=== PATIENT | male | born 1935 | race Caucasian/White ===

== ENCOUNTER 2021-04-07 17:15 | Inpatient (IN) | payer MEDICARE, OTHER ==
[2021-04-07] MEDS ORDERED: Bacitracin 1 PK ONE (17:39)
[2021-04-07 17:49] LABS: #Basophils 0.1 thou/uL (0.0-0.2); #Eosinphils 0.1 thou/uL (0.0-0.7); #Lymphocytes 1.7 thou/uL (1.20-3.40); #Monocytes 0.8 thou/uL (0.11-0.59); #Neutrophils 4.9 thou/uL (1.40-6.50); %Eosinophils 1.7 % (0.0-10.0); %Lymphocytes 22.3 % (21.0-51.0); %Monocytes 10.2 % (0.0-10.0); %Neutrophils 64.8 % (42.0-75.0); Hemoglobin 13.8 g/dL (14.0-18.0); Mean Corpuscular HGB CONC 32.8 g/dL (32.0-36.0); Mean Corpuscular Hemoglobin 33.2 pg (27.0-31.0); Mean Platelet Volume 8.6 fL (7.4-10.4); Platelet Count 135 thou/uL (130-400); RBC Distribution Width 14.3 % (11.5-14.5); Red Blood Cell (RBC) Count 4.15 mill/uL (4.70-6.10); White Blood Cell (WBC) Count 7.6 thou/uL (4.8-10.8)
[2021-04-07 18:13] LABS: ALT (SGPT) 15 U/L (8-55); AST (SGOT) 18 U/L (5-34); Alkaline Phosphatase 99 U/L (40-110); Anion Gap 12 mmol/L (10-20); BUN (Urea Nitrogen) 25 mg/dL (8.4-25.7); Bilirubin, Total 1.4 mg/dL (0.2-1.2); Calc. Creatinine Clearance 0 mL/min (70-130); Calcium 9.2 mg/dL (7.8-10.44); Carbon Dioxide 31 mmol/L (23-31); Chloride 99 mmol/L (98-107); Globulin 2.9 g/dL (2.4-3.5); Glucose 113 mg/dL (83-110); Potassium 3.4 mmol/L (3.5-5.1); Protein, Total 6.9 g/dL (5.8-8.1); Sodium 139 mmol/L (136-145)
[2021-04-07] MEDS ORDERED: Nitroglycerin 2% Ointment 1 INCH/1 GM Packet ONE (18:27)
[2021-04-07] MEDS ORDERED: Furosemide 100 MG/10 ML VIAL ONE (18:27)
[2021-04-07] MEDS ORDERED: Aspirin 325 MG TAB ONE (18:27)
[2021-04-07 18:33] LABS: CKMB 2.7 ng/mL (0-6.6)
[2021-04-07] MEDS ORDERED: Acetaminophen 650 MG Suppository PR PRN (19:22)
[2021-04-07] MEDS ORDERED: Acetaminophen 325 MG TAB PO PRN (19:22)
[2021-04-07] MEDS ORDERED: Ondansetron ODT 4 MG TAB PO PRN (19:22)
[2021-04-07] MEDS ORDERED: Ondansetron PF 4 MG/2 ML Vial IVP PRN (19:22)
[2021-04-07] MEDS ORDERED: Furosemide 40 MG/4 ML VIAL SLOW IVP SCH (19:30)
[2021-04-07 21:03] VITALS: BMI 30.9
[2021-04-08 06:06] LABS: Anion Gap 12 mmol/L (10-20); BUN (Urea Nitrogen) 23 mg/dL (8.4-25.7); Calc. Creatinine Clearance 51 mL/min (70-130); Calcium 9.2 mg/dL (7.8-10.44); Carbon Dioxide 31 mmol/L (23-31); Chloride 100 mmol/L (98-107); Glucose 103 mg/dL (83-110); Potassium 3.3 mmol/L (3.5-5.1); Sodium 140 mmol/L (136-145)
[2021-04-08] MEDS: Furosemide 40 MG/4 ML VIAL SLOW IVP SCH ×2 (06:33→15:09)
[2021-04-08] MEDS: Allopurinol 300 MG TAB PO SCH (08:09)
[2021-04-08] MEDS: Clopidogrel Bisulfate 75 MG TAB PO SCH (08:09)
[2021-04-08] MEDS: Carvedilol 6.25 MG TAB PO SCH (08:09)
[2021-04-08] MEDS: Tamsulosin HCl 0.4 MG CAP PO SCH (08:09)
[2021-04-08] MEDS ORDERED: Communication Order-Pharmacy FS SCH (09:45)
[2021-04-08 11:08] LABS: SARS-CoV-2 PCR by NAA Not Detected (NotDetected)
[2021-04-08] MEDS ORDERED: Potassium Chloride 20 MEQ TAB PO SCH (11:15)
[2021-04-08 11:35] LABS: Magnesium 1.9 mg/dL (1.6-2.6)
[2021-04-08] MEDS: Atorvastatin Calcium 20 MG TAB PO SCH (20:05)
[2021-04-08] MEDS: Aspirin 81 mg Enteric Coated Tablet PO SCH (20:05)
[2021-04-09] MEDS: Furosemide 40 MG/4 ML VIAL SLOW IVP SCH ×2 (05:57→14:36)
[2021-04-09] MEDS ORDERED: Sodium Chloride 0.9% 1,000 ML IV SCH (06:00)
[2021-04-09 06:06] LABS: Anion Gap 10 mmol/L (10-20); BUN (Urea Nitrogen) 34 mg/dL (8.4-25.7); Calc. Creatinine Clearance 43 mL/min (70-130); Calcium 9.3 mg/dL (7.8-10.44); Carbon Dioxide 34 mmol/L (23-31); Chloride 99 mmol/L (98-107); Glucose 119 mg/dL (83-110); Potassium 4.2 mmol/L (3.5-5.1); Sodium 139 mmol/L (136-145)
[2021-04-09] MEDS: Allopurinol 300 MG TAB PO SCH (09:16)
[2021-04-09] MEDS: Clopidogrel Bisulfate 75 MG TAB PO SCH (09:16)
[2021-04-09] MEDS: Tamsulosin HCl 0.4 MG CAP PO SCH (09:16)
[2021-04-09] MEDS: Carvedilol 6.25 MG TAB PO SCH (10:08)
[2021-04-09] MEDS ORDERED: Fluticasone Propionate Nasal Spray 16 gm Bottle NASAL SCH (17:15)
[2021-04-09] MEDS: Aspirin 81 mg Enteric Coated Tablet PO SCH (19:48)
[2021-04-09] MEDS: Carvedilol 3.125 MG TAB PO SCH (19:48)
[2021-04-09] MEDS: Atorvastatin Calcium 20 MG TAB PO SCH (19:49)
[2021-04-10] MEDS: Furosemide 40 MG/4 ML VIAL SLOW IVP SCH (05:35)
[2021-04-10 05:44] LABS: Anion Gap 14 mmol/L (10-20); BUN (Urea Nitrogen) 43 mg/dL (8.4-25.7); Calc. Creatinine Clearance 45 mL/min (70-130); Carbon Dioxide 27 mmol/L (23-31); Chloride 100 mmol/L (98-107); Glucose 132 mg/dL (83-110); Potassium 3.4 mmol/L (3.5-5.1); Sodium 138 mmol/L (136-145)
[2021-04-10] MEDS ORDERED: Potassium Chloride 20 MEQ TAB PO SCH (07:30)
[2021-04-10 07:48] LABS: Magnesium 2.2 mg/dL (1.6-2.6)
[2021-04-10] MEDS: Clopidogrel Bisulfate 75 MG TAB PO SCH (09:17)
[2021-04-10] MEDS: Carvedilol 3.125 MG TAB PO SCH ×2 (09:18→20:11)
[2021-04-10] MEDS: Allopurinol 300 MG TAB PO SCH (09:18)
[2021-04-10] MEDS: Tamsulosin HCl 0.4 MG CAP PO SCH (09:18)
[2021-04-10] MEDS ORDERED: Fluticasone Propionate Nasal Spray 16 gm Bottle NASAL SCH (17:00)
[2021-04-10] MEDS: Aspirin 81 mg Enteric Coated Tablet PO SCH (20:11)
[2021-04-10] MEDS: Atorvastatin Calcium 20 MG TAB PO SCH (20:11)
[2021-04-11 05:29] LABS: Anion Gap 14 mmol/L (10-20); BUN (Urea Nitrogen) 51 mg/dL (8.4-25.7); Calc. Creatinine Clearance 38 mL/min (70-130); Carbon Dioxide 29 mmol/L (23-31); Chloride 99 mmol/L (98-107); Glucose 131 mg/dL (83-110); Potassium 3.5 mmol/L (3.5-5.1); Sodium 138 mmol/L (136-145)
[2021-04-11] MEDS ORDERED: Furosemide 40 MG TAB PO SCH (07:30)
[2021-04-11] MEDS ORDERED: Potassium Citrate 10 MEQ TAB PO SCH (08:00)
[2021-04-11] MEDS: Clopidogrel Bisulfate 75 MG TAB PO SCH (09:24)
[2021-04-11] MEDS: Carvedilol 3.125 MG TAB PO SCH (09:24)
[2021-04-11] MEDS: Tamsulosin HCl 0.4 MG CAP PO SCH (09:24)
[2021-04-11] MEDS: Allopurinol 300 MG TAB PO SCH (09:24)
[2021-04-11 11:51] VITALS: BP 106/54; TEMP 97.8
== END 2021-04-11 12:40 | disposition home or self-care (01) | DRG 291 ==
LOC: ERS 17:15 → NEURO 18:59
PROVIDERS: ADMIT Family Medicine; ATTEND Family Medicine
DX: I11.0 Hypertensive heart disease with heart failure (principal); Z20.822 Contact with and (suspected) exposure to COVID-19; I50.23 Acute on chronic systolic (congestive) heart failure; J96.01 Acute respiratory failure with hypoxia; N17.9 Acute kidney failure, unspecified; I47.2 Ventricular tachycardia; I49.3 Ventricular premature depolarization; I48.91 Unspecified atrial fibrillation; E87.6 Hypokalemia; I25.10 Atherosclerotic heart disease of native coronary artery without angina pectoris; M10.9 Gout, unspecified; R77.8 Other specified abnormalities of plasma proteins; E78.00 Pure hypercholesterolemia, unspecified; I34.0 Nonrheumatic mitral (valve) insufficiency; Z88.2 Allergy status to sulfonamides; Z79.899 Other long term (current) drug therapy; Z79.02 Long term (current) use of antithrombotics/antiplatelets; Z95.5 Presence of coronary angioplasty implant and graft; Z95.2 Presence of prosthetic heart valve; Z79.82 Long term (current) use of aspirin
CPT/HCPCS: 36415; 71045; 80048; 80053; 82553; 83735; 83880; 84484; 85025; 93005; 93306; 94760; 96374; J1940; J3475; J3490; J7050; U0003; U0005

== ENCOUNTER 2021-04-24 11:56 | Inpatient (IN) | payer MEDICARE, OTHER ==
[2021-04-24 12:39] LABS: #Basophils 0.1 thou/uL (0.0-0.2); #Eosinphils 0.1 thou/uL (0.0-0.7); #Lymphocytes 1.5 thou/uL (1.20-3.40); #Monocytes 0.8 thou/uL (0.11-0.59); #Neutrophils 6.2 thou/uL (1.40-6.50); %Basophils 0.6 % (0.0-1.0); %Eosinophils 1.3 % (0.0-10.0); %Lymphocytes 17.8 % (21.0-51.0); %Monocytes 9.3 % (0.0-10.0); Hemoglobin 13.5 g/dL (14.0-18.0); Mean Corpuscular HGB CONC 32.8 g/dL (32.0-36.0); Mean Corpuscular Hemoglobin 32.9 pg (27.0-31.0); Mean Platelet Volume 8.7 fL (7.4-10.4); Platelet Count 141 thou/uL (130-400); RBC Distribution Width 14.3 % (11.5-14.5); Red Blood Cell (RBC) Count 4.09 mill/uL (4.70-6.10); White Blood Cell (WBC) Count 8.7 thou/uL (4.8-10.8)
[2021-04-24 12:59] LABS: ALT (SGPT) 30 U/L (8-55); AST (SGOT) 25 U/L (5-34); Albumin 3.9 g/dL (3.4-4.8); Alkaline Phosphatase 119 U/L (40-110); Anion Gap 14 mmol/L (10-20); BUN (Urea Nitrogen) 42 mg/dL (8.4-25.7); Bilirubin, Total 1.2 mg/dL (0.2-1.2); Calc. Creatinine Clearance 0 mL/min (70-130); Calcium 9.4 mg/dL (7.8-10.44); Carbon Dioxide 30 mmol/L (23-31); Chloride 101 mmol/L (98-107); Glucose 118 mg/dL (83-110); Potassium 3.2 mmol/L (3.5-5.1); Protein, Total 6.9 g/dL (5.8-8.1); Sodium 142 mmol/L (136-145)
[2021-04-24] MEDS ORDERED: Furosemide 40 MG/4 ML VIAL ONE (12:59)
[2021-04-24 13:21] LABS: CKMB 2.7 ng/mL (0-6.6)
[2021-04-24] MEDS ORDERED: Acetaminophen 325 MG TAB PO PRN (14:14)
[2021-04-24] MEDS ORDERED: Amiodarone 200 MG TAB PO SCH (14:30)
[2021-04-24] MEDS ORDERED: Enoxaparin Sodium 30 MG/0.3 ML SYRINGE ONE (15:24)
[2021-04-24] MEDS ORDERED: Enoxaparin Sodium 60 MG/0.6 ML SYRINGE ONE (15:24)
[2021-04-24 16:33] VITALS: BMI 29.5
[2021-04-24 16:57] LABS: Troponin I 0.093 ng/mL (< 0.028)
[2021-04-24] MEDS ORDERED: Carvedilol 3.125 MG TAB PO SCH (21:00)
[2021-04-24] MEDS: Aspirin 81 mg Enteric Coated Tablet PO SCH (21:18)
[2021-04-24] MEDS: Apixaban 2.5 MG TAB PO SCH (21:18)
[2021-04-24] MEDS: Atorvastatin Calcium 20 MG TAB PO SCH (21:18)
[2021-04-24 22:48] LABS: SARS-CoV-2 PCR by NAA Not Detected (NotDetected)
[2021-04-24] MEDS: Melatonin 3 MG TAB PO PRN (23:41)
[2021-04-25 05:42] LABS: Anion Gap 11 mmol/L (10-20); BUN (Urea Nitrogen) 43 mg/dL (8.4-25.7); Calc. Creatinine Clearance 36 mL/min (70-130); Calcium 9.1 mg/dL (7.8-10.44); Carbon Dioxide 31 mmol/L (23-31); Chloride 99 mmol/L (98-107); Glucose 123 mg/dL (83-110); Potassium 3.4 mmol/L (3.5-5.1); Sodium 138 mmol/L (136-145)
[2021-04-25] MEDS ORDERED: Furosemide 40 MG/4 ML VIAL SLOW IVP SCH (06:00)
[2021-04-25] MEDS ORDERED: Potassium Chloride 20 MEQ TAB PO SCH (06:30)
[2021-04-25] MEDS ORDERED: Potassium Citrate 10 MEQ TAB PO SCH (08:00)
[2021-04-25] MEDS: Apixaban 2.5 MG TAB PO SCH ×2 (09:55→22:03)
[2021-04-25] MEDS: Amiodarone 200 MG TAB PO SCH (09:55)
[2021-04-25] MEDS: Tamsulosin HCl 0.4 MG CAP PO SCH (09:55)
[2021-04-25] MEDS: Allopurinol 300 MG TAB PO SCH (09:56)
[2021-04-25] MEDS: DOBUTamine 500 mg/250 ml 250 ML IVPB SCH (09:56)
[2021-04-25] MEDS: Furosemide 100 MG/10 ML VIAL SLOW IVP SCH (14:51)
[2021-04-25] MEDS: Aspirin 81 mg Enteric Coated Tablet PO SCH (22:02)
[2021-04-25] MEDS: Atorvastatin Calcium 20 MG TAB PO SCH (22:02)
[2021-04-26] MEDS: DOBUTamine 500 mg/250 ml 250 ML IVPB SCH (05:24)
[2021-04-26] MEDS: Furosemide 100 MG/10 ML VIAL SLOW IVP SCH ×2 (05:24→14:58)
[2021-04-26 07:58] LABS: Anion Gap 12 mmol/L (10-20); BUN (Urea Nitrogen) 44 mg/dL (8.4-25.7); Calc. Creatinine Clearance 40 mL/min (70-130); Calcium 9.2 mg/dL (7.8-10.44); Carbon Dioxide 32 mmol/L (23-31); Chloride 99 mmol/L (98-107); Glucose 110 mg/dL (83-110); Potassium 3.3 mmol/L (3.5-5.1); Sodium 140 mmol/L (136-145)
[2021-04-26] MEDS: Amiodarone 200 MG TAB PO SCH (08:59)
[2021-04-26] MEDS: Allopurinol 300 MG TAB PO SCH (08:59)
[2021-04-26] MEDS ORDERED: Potassium Chloride 20 MEQ TAB PO SCH (09:00)
[2021-04-26] MEDS: Apixaban 2.5 MG TAB PO SCH ×2 (09:00→20:35)
[2021-04-26] MEDS ORDERED: Spironolactone 25 MG TAB PO SCH ×2 (09:00)
[2021-04-26] MEDS: Tamsulosin HCl 0.4 MG CAP PO SCH (09:00)
[2021-04-26] MEDS ORDERED: Metolazone 5 MG TAB PO SCH ×2 (09:00→09:30)
[2021-04-26] MEDS: Potassium Citrate 10 MEQ TAB PO SCH (10:17)
[2021-04-26] MEDS: Aspirin 81 mg Enteric Coated Tablet PO SCH (20:35)
[2021-04-26] MEDS: Atorvastatin Calcium 20 MG TAB PO SCH (20:35)
[2021-04-26] MEDS: diphenhydrAMINE 25 MG CAP PO PRN (23:26)
[2021-04-27] MEDS: DOBUTamine 500 mg/250 ml 250 ML IVPB SCH ×2 (01:04→21:43)
[2021-04-27 05:37] LABS: Anion Gap 11 mmol/L (10-20); BUN (Urea Nitrogen) 42 mg/dL (8.4-25.7); Calc. Creatinine Clearance 37 mL/min (70-130); Calcium 9.3 mg/dL (7.8-10.44); Carbon Dioxide 32 mmol/L (23-31); Chloride 99 mmol/L (98-107); Glucose 114 mg/dL (83-110); Phosphorus 3.3 mg/dL (2.3-4.7); Potassium 3.2 mmol/L (3.5-5.1); Sodium 139 mmol/L (136-145)
[2021-04-27] MEDS: Furosemide 100 MG/10 ML VIAL SLOW IVP SCH ×2 (05:45→14:01)
[2021-04-27] MEDS ORDERED: Potassium Chloride 20 MEQ in Premix Bag 1 BAG IVPB SCH (07:00)
[2021-04-27] MEDS ORDERED: Spironolactone 25 MG TAB PO SCH (08:00)
[2021-04-27] MEDS ORDERED: Metolazone 5 MG TAB PO SCH (08:30)
[2021-04-27] MEDS: Amiodarone 200 MG TAB PO SCH (08:56)
[2021-04-27] MEDS: Metolazone 5 MG TAB PO SCH (08:56)
[2021-04-27] MEDS: Apixaban 2.5 MG TAB PO SCH ×2 (08:56→20:22)
[2021-04-27] MEDS: Tamsulosin HCl 0.4 MG CAP PO SCH (08:56)
[2021-04-27] MEDS: Allopurinol 300 MG TAB PO SCH (08:56)
[2021-04-27] MEDS: Potassium Citrate 10 MEQ TAB PO SCH (12:12)
[2021-04-27] MEDS: Atorvastatin Calcium 20 MG TAB PO SCH (20:22)
[2021-04-27] MEDS: Aspirin 81 mg Enteric Coated Tablet PO SCH (20:22)
[2021-04-27] MEDS: Melatonin 3 MG TAB PO PRN (23:52)
[2021-04-28 04:20] LABS: Anion Gap 10 mmol/L (10-20); BUN (Urea Nitrogen) 42 mg/dL (8.4-25.7); Calc. Creatinine Clearance 37 mL/min (70-130); Calcium 9.5 mg/dL (7.8-10.44); Carbon Dioxide 35 mmol/L (23-31); Chloride 94 mmol/L (98-107); Glucose 121 mg/dL (83-110); Potassium 3.1 mmol/L (3.5-5.1); Sodium 136 mmol/L (136-145)
[2021-04-28] MEDS: Furosemide 100 MG/10 ML VIAL SLOW IVP SCH ×2 (06:21→14:18)
[2021-04-28] MEDS: Potassium Chloride 20 MEQ in Premix Bag 1 BAG IVPB SCH ×2 (08:56→10:39)
[2021-04-28] MEDS: Allopurinol 300 MG TAB PO SCH (08:57)
[2021-04-28] MEDS: Potassium Citrate 10 MEQ TAB PO SCH (08:57)
[2021-04-28] MEDS: Amiodarone 200 MG TAB PO SCH (08:57)
[2021-04-28] MEDS: Spironolactone 25 MG TAB PO SCH (08:57)
[2021-04-28] MEDS: Tamsulosin HCl 0.4 MG CAP PO SCH (08:57)
[2021-04-28] MEDS: Metolazone 5 MG TAB PO SCH (08:58)
[2021-04-28] MEDS: Apixaban 2.5 MG TAB PO SCH ×2 (08:58→21:54)
[2021-04-28] MEDS: Guaifenesin DM 100-10/5 ML UDCUP PO PRN ×2 (12:08→17:23)
[2021-04-28] MEDS: DOBUTamine 500 mg/250 ml 250 ML IVPB SCH (17:19)
[2021-04-28] MEDS: Aspirin 81 mg Enteric Coated Tablet PO SCH (21:54)
[2021-04-28] MEDS: Atorvastatin Calcium 20 MG TAB PO SCH (21:54)
[2021-04-28] MEDS: diphenhydrAMINE 25 MG CAP PO PRN (21:54)
[2021-04-29] MEDS: Furosemide 100 MG/10 ML VIAL SLOW IVP SCH ×2 (05:32→14:59)
[2021-04-29 05:46] LABS: Anion Gap 11 mmol/L (10-20); BUN (Urea Nitrogen) 44 mg/dL (8.4-25.7); Calc. Creatinine Clearance 35 mL/min (70-130); Calcium 9.4 mg/dL (7.8-10.44); Carbon Dioxide 36 mmol/L (23-31); Chloride 92 mmol/L (98-107); Glucose 100 mg/dL (83-110); Potassium 3.4 mmol/L (3.5-5.1); Sodium 136 mmol/L (136-145)
[2021-04-29] MEDS ORDERED: Furosemide 100 MG/10 ML VIAL SLOW IVP SCH (07:45)
[2021-04-29] MEDS ORDERED: Potassium Chloride 20 MEQ in Premix Bag 1 BAG IVPB SCH (08:00)
[2021-04-29] MEDS ORDERED: Hydrocerin (Eucerin) Cream 120 gm Jar TOP PRN (08:08)
[2021-04-29] MEDS: Metolazone 5 MG TAB PO SCH (09:08)
[2021-04-29] MEDS: Allopurinol 300 MG TAB PO SCH (09:09)
[2021-04-29] MEDS: Spironolactone 25 MG TAB PO SCH (09:10)
[2021-04-29] MEDS: Apixaban 2.5 MG TAB PO SCH ×2 (09:10→20:58)
[2021-04-29] MEDS: Tamsulosin HCl 0.4 MG CAP PO SCH (09:10)
[2021-04-29] MEDS: Amiodarone 200 MG TAB PO SCH (09:11)
[2021-04-29] MEDS: Potassium Citrate 10 MEQ TAB PO SCH (09:11)
[2021-04-29] MEDS: DOBUTamine 500 mg/250 ml 250 ML IVPB SCH (12:59)
[2021-04-29 13:37] LABS: #Lymphocytes 1.3 thou/uL (1.20-3.40); #Monocytes 0.8 thou/uL (0.11-0.59); #Neutrophils 7.4 thou/uL (1.40-6.50); %Basophils 0.1 % (0.0-1.0); %Eosinophils 0.2 % (0.0-10.0); %Lymphocytes 13.2 % (21.0-51.0); %Monocytes 8.4 % (0.0-10.0); Hemoglobin 12.8 g/dL (14.0-18.0); Mean Corpuscular HGB CONC 33.7 g/dL (32.0-36.0); Mean Corpuscular Hemoglobin 33.2 pg (27.0-31.0); Mean Corpuscular Volume 98.5 fL (78.0-98.0); Mean Platelet Volume 8.1 fL (7.4-10.4); Platelet Count 120 thou/uL (130-400); RBC Distribution Width 14.3 % (11.5-14.5); Red Blood Cell (RBC) Count 3.85 mill/uL (4.70-6.10); White Blood Cell (WBC) Count 9.5 thou/uL (4.8-10.8)
[2021-04-29] MEDS: Guaifenesin DM 100-10/5 ML UDCUP PO PRN (20:57)
[2021-04-29] MEDS: Aspirin 81 mg Enteric Coated Tablet PO SCH (20:58)
[2021-04-29] MEDS: Atorvastatin Calcium 20 MG TAB PO SCH (20:58)
[2021-04-30] MEDS: DOBUTamine 500 mg/250 ml 250 ML IVPB SCH (05:10)
[2021-04-30] MEDS: Furosemide 100 MG/10 ML VIAL SLOW IVP SCH ×2 (05:10→15:14)
[2021-04-30 05:25] LABS: Anion Gap 13 mmol/L (10-20); BUN (Urea Nitrogen) 49 mg/dL (8.4-25.7); Calc. Creatinine Clearance 32 mL/min (70-130); Calcium 9.6 mg/dL (7.8-10.44); Carbon Dioxide 35 mmol/L (23-31); Chloride 89 mmol/L (98-107); Glucose 114 mg/dL (83-110); Potassium 3.4 mmol/L (3.5-5.1); Sodium 134 mmol/L (136-145)
[2021-04-30] MEDS ORDERED: Potassium Chloride 20 MEQ in Premix Bag 1 BAG IVPB SCH (09:00)
[2021-04-30] MEDS: Spironolactone 25 MG TAB PO SCH (09:08)
[2021-04-30] MEDS: Metolazone 5 MG TAB PO SCH (09:09)
[2021-04-30] MEDS: Potassium Citrate 10 MEQ TAB PO SCH (09:09)
[2021-04-30] MEDS: Allopurinol 300 MG TAB PO SCH (09:10)
[2021-04-30] MEDS: Amiodarone 200 MG TAB PO SCH (09:10)
[2021-04-30] MEDS: Apixaban 2.5 MG TAB PO SCH ×2 (09:10→22:27)
[2021-04-30] MEDS: Tamsulosin HCl 0.4 MG CAP PO SCH (09:10)
[2021-04-30] MEDS: Aspirin 81 mg Enteric Coated Tablet PO SCH (22:26)
[2021-04-30] MEDS: Guaifenesin DM 100-10/5 ML UDCUP PO PRN (22:26)
[2021-04-30] MEDS: Atorvastatin Calcium 20 MG TAB PO SCH (22:27)
[2021-04-30] MEDS: Melatonin 3 MG TAB PO PRN (22:27)
[2021-05-01] MEDS: DOBUTamine 500 mg/250 ml 250 ML IVPB SCH (04:10)
[2021-05-01 05:30] LABS: Anion Gap 15 mmol/L (10-20); BUN (Urea Nitrogen) 54 mg/dL (8.4-25.7); Calc. Creatinine Clearance 30 mL/min (70-130); Calcium 9.7 mg/dL (7.8-10.44); Carbon Dioxide 36 mmol/L (23-31); Chloride 88 mmol/L (98-107); Glucose 119 mg/dL (83-110); Potassium 3.7 mmol/L (3.5-5.1); Sodium 135 mmol/L (136-145)
[2021-05-01] MEDS: Furosemide 100 MG/10 ML VIAL SLOW IVP SCH (05:32)
[2021-05-01] MEDS: Allopurinol 300 MG TAB PO SCH (08:57)
[2021-05-01] MEDS: Spironolactone 25 MG TAB PO SCH (08:57)
[2021-05-01] MEDS: Amiodarone 200 MG TAB PO SCH (08:57)
[2021-05-01] MEDS: Tamsulosin HCl 0.4 MG CAP PO SCH (08:58)
[2021-05-01] MEDS: Apixaban 2.5 MG TAB PO SCH ×2 (08:58→20:59)
[2021-05-01] MEDS: Potassium Citrate 10 MEQ TAB PO SCH (09:08)
[2021-05-01] MEDS: Guaifenesin DM 100-10/5 ML UDCUP PO PRN (20:59)
[2021-05-01] MEDS: Aspirin 81 mg Enteric Coated Tablet PO SCH (20:59)
[2021-05-01] MEDS: Atorvastatin Calcium 20 MG TAB PO SCH (20:59)
[2021-05-01] MEDS: Melatonin 3 MG TAB PO PRN (20:59)
[2021-05-02 05:07] LABS: Anion Gap 14 mmol/L (10-20); BUN (Urea Nitrogen) 57 mg/dL (8.4-25.7); Calc. Creatinine Clearance 27 mL/min (70-130); Calcium 9.3 mg/dL (7.8-10.44); Carbon Dioxide 31 mmol/L (23-31); Chloride 90 mmol/L (98-107); Glucose 124 mg/dL (83-110); Potassium 3.4 mmol/L (3.5-5.1); Sodium 132 mmol/L (136-145)
[2021-05-02] MEDS: DOBUTamine 500 mg/250 ml 250 ML IVPB SCH (05:23)
[2021-05-02] MEDS: Tamsulosin HCl 0.4 MG CAP PO SCH (07:49)
[2021-05-02] MEDS: Allopurinol 300 MG TAB PO SCH (07:49)
[2021-05-02] MEDS: Apixaban 2.5 MG TAB PO SCH ×2 (07:49→21:02)
[2021-05-02] MEDS: Amiodarone 200 MG TAB PO SCH (07:49)
[2021-05-02] MEDS: Spironolactone 25 MG TAB PO SCH (07:49)
[2021-05-02] MEDS ORDERED: Sodium Chloride 0.9% 300 ML IV SCH (19:00)
[2021-05-02] MEDS: Aspirin 81 mg Enteric Coated Tablet PO SCH (21:02)
[2021-05-02] MEDS: Melatonin 3 MG TAB PO PRN (21:02)
[2021-05-02] MEDS: Guaifenesin DM 100-10/5 ML UDCUP PO PRN (21:02)
[2021-05-02] MEDS: Atorvastatin Calcium 20 MG TAB PO SCH (21:02)
[2021-05-03] MEDS: DOBUTamine 500 mg/250 ml 250 ML IVPB SCH (00:53)
[2021-05-03] MEDS: Guaifenesin DM 100-10/5 ML UDCUP PO PRN ×2 (03:22→20:47)
[2021-05-03 04:41] LABS: #Basophils 0.1 thou/uL (0.0-0.2); #Eosinphils 0.2 thou/uL (0.0-0.7); #Lymphocytes 1.7 thou/uL (1.20-3.40); #Monocytes 0.9 thou/uL (0.11-0.59); #Neutrophils 7.9 thou/uL (1.40-6.50); %Basophils 0.6 % (0.0-1.0); %Eosinophils 1.6 % (0.0-10.0); %Monocytes 8.4 % (0.0-10.0); %Neutrophils 73.3 % (42.0-75.0); Hemoglobin 13.1 g/dL (14.0-18.0); Mean Corpuscular HGB CONC 32.5 g/dL (32.0-36.0); Mean Corpuscular Hemoglobin 32.1 pg (27.0-31.0); Mean Corpuscular Volume 98.7 fL (78.0-98.0); Mean Platelet Volume 8.3 fL (7.4-10.4); Platelet Count 179 thou/uL (130-400); RBC Distribution Width 14.4 % (11.5-14.5); Red Blood Cell (RBC) Count 4.07 mill/uL (4.70-6.10); White Blood Cell (WBC) Count 10.8 thou/uL (4.8-10.8)
[2021-05-03 05:06] LABS: Anion Gap 13 mmol/L (10-20); BUN (Urea Nitrogen) 51 mg/dL (8.4-25.7); Calc. Creatinine Clearance 34 mL/min (70-130); Calcium 9.2 mg/dL (7.8-10.44); Carbon Dioxide 30 mmol/L (23-31); Chloride 91 mmol/L (98-107); Glucose 146 mg/dL (83-110); Potassium 3.5 mmol/L (3.5-5.1); Sodium 130 mmol/L (136-145)
[2021-05-03 07:59] LABS: SARS-CoV-2 PCR by NAA Not Detected (NotDetected)
[2021-05-03] MEDS ORDERED: DOBUTamine 500 mg/250 ml 250 ML IVPB SCH (08:29)
[2021-05-03] MEDS: Spironolactone 25 MG TAB PO SCH (09:28)
[2021-05-03] MEDS: Apixaban 2.5 MG TAB PO SCH ×2 (09:29→20:44)
[2021-05-03] MEDS: Allopurinol 300 MG TAB PO SCH (09:29)
[2021-05-03] MEDS: Tamsulosin HCl 0.4 MG CAP PO SCH (09:29)
[2021-05-03] MEDS: Amiodarone 200 MG TAB PO SCH (09:29)
[2021-05-03] MEDS: Aspirin 81 mg Enteric Coated Tablet PO SCH (20:44)
[2021-05-03] MEDS: Atorvastatin Calcium 20 MG TAB PO SCH (20:44)
[2021-05-03] MEDS: Melatonin 3 MG TAB PO PRN (20:46)
[2021-05-04 05:32] LABS: Anion Gap 14 mmol/L (10-20); BUN (Urea Nitrogen) 43 mg/dL (8.4-25.7); Calc. Creatinine Clearance 37 mL/min (70-130); Carbon Dioxide 26 mmol/L (23-31); Chloride 95 mmol/L (98-107); Glucose 129 mg/dL (83-110); Potassium 3.6 mmol/L (3.5-5.1); Sodium 131 mmol/L (136-145)
[2021-05-04] MEDS: Allopurinol 300 MG TAB PO SCH (08:45)
[2021-05-04] MEDS: Tamsulosin HCl 0.4 MG CAP PO SCH (08:45)
[2021-05-04] MEDS: Amiodarone 200 MG TAB PO SCH (08:45)
[2021-05-04] MEDS: Apixaban 2.5 MG TAB PO SCH (08:45)
[2021-05-04] MEDS: Spironolactone 25 MG TAB PO SCH (08:45)
[2021-05-04 12:20] VITALS: BP 91/54; TEMP 97.9
[2021-05-05] MEDS ORDERED: Furosemide 40 MG TAB PO SCH (07:30)
== END 2021-05-04 15:30 | disposition home or self-care (01) | DRG 291 ==
LOC: ERS 11:56 → 2NO 13:47
PROVIDERS: ADMIT Family Medicine; ATTEND Family Medicine
DX: I13.0 Hypertensive heart and chronic kidney disease with heart failure and stage 1 through stage 4 chronic kidney disease, or unspecified chronic kidney disease (principal); I50.23 Acute on chronic systolic (congestive) heart failure; N17.9 Acute kidney failure, unspecified; I48.21 Permanent atrial fibrillation; I48.92 Unspecified atrial flutter; Z20.822 Contact with and (suspected) exposure to COVID-19; I25.10 Atherosclerotic heart disease of native coronary artery without angina pectoris; I34.0 Nonrheumatic mitral (valve) insufficiency; M10.9 Gout, unspecified; I87.2 Venous insufficiency (chronic) (peripheral); I42.0 Dilated cardiomyopathy; E87.6 Hypokalemia; E78.00 Pure hypercholesterolemia, unspecified; J44.9 Chronic obstructive pulmonary disease, unspecified; F32.A Depression, unspecified; N18.9 Chronic kidney disease, unspecified; E78.5 Hyperlipidemia, unspecified; Z95.2 Presence of prosthetic heart valve; Z95.5 Presence of coronary angioplasty implant and graft; Z79.899 Other long term (current) drug therapy; Z79.82 Long term (current) use of aspirin; Z79.02 Long term (current) use of antithrombotics/antiplatelets; Z88.2 Allergy status to sulfonamides
CPT/HCPCS: 36415; 71045; 80048; 80053; 82553; 83735; 83880; 84100; 84443; 84484; 85025; 93005; 96372; 96374; J1250; J1650; J1940; J3480; J7030; U0003; U0005

== ENCOUNTER 2021-06-30 13:29 | Outpatient (CLI) | payer MEDICARE, OTHER ==
[2021-06-30 14:19] LABS: #Basophils 0.1 10x3/uL (0.0-0.2); #Eosinphils 0.2 10x3/uL (0.0-0.5); #Monocytes 0.9 10x3/uL (0.0-1.1); #Neutrophils 5.7 10x3/uL (1.5-8.4); %Basophils 1.2 % (0.0-2.0); %Eosinophils 2.3 % (0.0-6.0); %Lymphocytes 23.4 % (18.0-47.0); %Monocytes 9.7 % (0.0-10.0); %Neutrophils 62.7 % (40.0-75.0); Hemoglobin 12.2 g/dL (13.5-17.5); Mean Corpuscular HGB CONC 32.3 g/dL (32.0-36.0); Mean Corpuscular Hemoglobin 32.1 pg (27.0-33.0); Mean Corpuscular Volume 99.5 fl (81.2-95.1); Mean Platelet Volume 9.7 fl (7.4-10.4); Platelet Count 257 10x3/uL (150-450); RBC Distribution Width 16.8 % (11.5-14.5); White Blood Cell (WBC) Count 9.1 10x3/uL (3.5-10.5)
[2021-06-30 14:47] LABS: ALT (SGPT) 29 U/L (8-55); AST (SGOT) 27 U/L (5-34); Albumin 4.4 g/dL (3.4-4.8); Alkaline Phosphatase 105 U/L (40-110); Anion Gap 15 mmol/L (10-20); BUN (Urea Nitrogen) 39 mg/dL (8.4-25.7); Bilirubin, Total 0.7 mg/dL (0.2-1.2); Calc. Creatinine Clearance 0 mL/min (70-130); Calcium 9.2 mg/dL (7.8-10.44); Carbon Dioxide 26 mmol/L (23-31); Chloride 101 mmol/L (98-107); Globulin 2.6 g/dL (2.4-3.5); Glucose 119 mg/dL (83-110); Potassium 5.2 mmol/L (3.5-5.1); Sodium 137 mmol/L (136-145)
[2021-06-30 23:37] LABS: SARS-CoV-2 PCR by NAA Not Detected (NotDetected)
== END 2021-06-30 13:30 | disposition home or self-care (01) ==
LOC: LABBT 13:29
PROVIDERS: ATTEND Internal Medicine Cardiovascular Disease
DX: Z01.812 Encounter for preprocedural laboratory examination (principal); I48.91 Unspecified atrial fibrillation; Z20.822 Contact with and (suspected) exposure to COVID-19
CPT/HCPCS: 80053; 85025; U0003; U0005

== ENCOUNTER 2021-07-02 10:19 | Day surgery (SDC) | payer MEDICARE, OTHER ==
[2021-07-01 12:54] VITALS: BMI 26.3
[2021-07-02] MEDS ORDERED: PROPOFOL 20 ML ONE (11:34)
== END 2021-07-02 15:07 | disposition home or self-care (01) ==
LOC: SDC 10:19
PROVIDERS: ATTEND Internal Medicine Cardiovascular Disease
PROC: B246ZZ4 Ultrasonography of Right and Left Heart, Transesophageal (ICD-10-PCS; principal; 2021-07-02)
PROC: 5A2204Z Restoration of Cardiac Rhythm, Single (ICD-10-PCS; 2021-07-02)
DX: I48.91 Unspecified atrial fibrillation (principal); I34.0 Nonrheumatic mitral (valve) insufficiency; I34.1 Nonrheumatic mitral (valve) prolapse; I25.10 Atherosclerotic heart disease of native coronary artery without angina pectoris; I11.0 Hypertensive heart disease with heart failure; I50.22 Chronic systolic (congestive) heart failure; N40.0 Benign prostatic hyperplasia without lower urinary tract symptoms; M10.9 Gout, unspecified; E78.5 Hyperlipidemia, unspecified; Z79.01 Long term (current) use of anticoagulants; Z79.82 Long term (current) use of aspirin; Z79.899 Other long term (current) drug therapy; Z88.2 Allergy status to sulfonamides; Z95.2 Presence of prosthetic heart valve; Z95.5 Presence of coronary angioplasty implant and graft
CPT/HCPCS: 92960; 93312; J2704

== ENCOUNTER 2022-01-02 09:32 | Outpatient (CLI) | payer MEDICARE, OTHER | END 2022-01-02 09:33 | disposition home or self-care (01) | LOC: LABBT 09:32 | PROVIDERS: ATTEND Internal Medicine Cardiovascular Disease | DX: I25.10 Atherosclerotic heart disease of native coronary artery without angina pectoris (principal); Z20.822 Contact with and (suspected) exposure to COVID-19 | CPT/HCPCS: 87811 ==

== ENCOUNTER 2022-01-02 09:45 | Observation (INO) | payer MEDICARE, OTHER ==
[2022-01-06] MEDS ORDERED: Diazepam 5 MG TAB PO SCH (17:15)
[2022-01-06] MEDS ORDERED: Communication Order-Pharmacy FS SCH (17:15)
[2022-01-06 17:41] LABS: #Eosinphils 0.1 thou/uL (0.0-0.7); #Lymphocytes 1.7 thou/uL (1.20-3.40); #Monocytes 0.7 thou/uL (0.11-0.59); #Neutrophils 3.8 thou/uL (1.40-6.50); %Basophils 0.6 % (0.0-1.0); %Eosinophils 2.3 % (0.0-10.0); %Lymphocytes 26.7 % (21.0-51.0); %Neutrophils 59.4 % (42.0-75.0); Hemoglobin 12.8 g/dL (14.0-18.0); Mean Corpuscular HGB CONC 33.3 g/dL (32.0-36.0); Mean Corpuscular Hemoglobin 33.1 pg (27.0-31.0); Mean Corpuscular Volume 99.2 fL (78.0-98.0); Platelet Count 151 thou/uL (130-400); RBC Distribution Width 13.7 % (11.5-14.5); Red Blood Cell (RBC) Count 3.88 mill/uL (4.70-6.10); White Blood Cell (WBC) Count 6.3 thou/uL (4.8-10.8)
[2022-01-06 18:03] LABS: ALT (SGPT) 11 U/L (8-55); AST (SGOT) 15 U/L (5-34); Albumin 4.2 g/dL (3.4-4.8); Alkaline Phosphatase 80 U/L (40-110); Anion Gap 16 mmol/L (10-20); BUN (Urea Nitrogen) 20 mg/dL (8.4-25.7); Calc. Creatinine Clearance 0 mL/min (70-130); Calcium 9.2 mg/dL (7.8-10.44); Carbon Dioxide 25 mmol/L (23-31); Chloride 103 mmol/L (98-107); Estimated GFR 46; Globulin 2.7 g/dL (2.4-3.5); Glucose 105 mg/dL (83-110); Potassium 3.9 mmol/L (3.5-5.1); Protein, Total 6.9 g/dL (5.8-8.1); Sodium 140 mmol/L (136-145)
[2022-01-06 18:07] VITALS: BMI 28.4
[2022-01-06] MEDS: Sodium Chloride 0.9% 1,000 ML IV SCH (19:16)
[2022-01-06] MEDS ORDERED: Atorvastatin Calcium 20 MG TAB PO SCH (21:00)
[2022-01-07] MEDS: Sodium Chloride 0.9% 1,000 ML IV SCH (03:53)
[2022-01-07 05:23] LABS: ALT (SGPT) 8 U/L (8-55); AST (SGOT) 12 U/L (5-34); Albumin 3.8 g/dL (3.4-4.8); Alkaline Phosphatase 68 U/L (40-110); Bilirubin, Direct 0.3 mg/dL (0.1-0.3); Protein, Total 6.2 g/dL (5.8-8.1)
[2022-01-07 05:46] LABS: Anion Gap 15 mmol/L (10-20); BUN (Urea Nitrogen) 21 mg/dL (8.4-25.7); Calc. Creatinine Clearance 51 mL/min (70-130); Calcium 8.9 mg/dL (7.8-10.44); Carbon Dioxide 21 mmol/L (23-31); Chloride 106 mmol/L (98-107); Estimated GFR 57; Glucose 101 mg/dL (83-110); Potassium 3.8 mmol/L (3.5-5.1); Sodium 138 mmol/L (136-145)
[2022-01-07] MEDS ORDERED: Lidocaine 1% PF 5 ML VIAL ONE (06:37)
[2022-01-07] MEDS ORDERED: Heparin 10,000 UNITS/ 10 ML VIAL ONE (06:37)
[2022-01-07] MEDS ORDERED: Fentanyl 100 MCG/2 ML VIAL ONE (07:13)
[2022-01-07] MEDS ORDERED: Midazolam HCl 2 mg/2 ml Vial ONE (07:14)
[2022-01-07] MEDS ORDERED: Nitroglycerin 100MG/250ML BOT 250 ML ONE (07:29)
[2022-01-07 08:49] VITALS: TEMP 98.2
[2022-01-07] MEDS ORDERED: Sodium Chloride 0.9% 1,000 ML IV SCH (09:00)
[2022-01-07] MEDS ORDERED: Aspirin 81 mg Enteric Coated Tablet PO SCH (09:00)
[2022-01-07] MEDS ORDERED: Iopamidol 370 76% 100 ML VIAL ONE (12:00)
[2022-01-07 12:40] VITALS: BP 117/61
[2022-01-08] MEDS ORDERED: Aspirin Chewable 81 MG TAB PO SCH (09:00)
== END 2022-01-07 15:28 | disposition home or self-care (01) ==
LOC: PREINTOOBSV 01-06 15:02 → 2SW 01-06 16:48 → INTOOBSV 01-07 08:49 → OBSVTOIN 01-07 08:49
PROVIDERS: ADMIT Internal Medicine Cardiovascular Disease; ATTEND Internal Medicine Cardiovascular Disease
PROC: B2111ZZ Fluoroscopy of Multiple Coronary Arteries using Low Osmolar Contrast (ICD-10-PCS; principal; 2022-01-07)
PROC: 4A033BC Measurement of Arterial Pressure, Coronary, Percutaneous Approach (ICD-10-PCS; 2022-01-07)
PROC: B240ZZ3 Ultrasonography of Single Coronary Artery, Intravascular (ICD-10-PCS; 2022-01-07)
DX: I25.10 Atherosclerotic heart disease of native coronary artery without angina pectoris (principal); I50.22 Chronic systolic (congestive) heart failure; I48.19 Other persistent atrial fibrillation; I34.0 Nonrheumatic mitral (valve) insufficiency; M10.9 Gout, unspecified; E78.5 Hyperlipidemia, unspecified; N40.0 Benign prostatic hyperplasia without lower urinary tract symptoms; I42.8 Other cardiomyopathies; I49.3 Ventricular premature depolarization; Z20.822 Contact with and (suspected) exposure to COVID-19; I11.0 Hypertensive heart disease with heart failure; Z88.2 Allergy status to sulfonamides; Z98.61 Coronary angioplasty status; Z95.2 Presence of prosthetic heart valve
CPT/HCPCS: 80048; 80053; 80076; 85025; 85347; 92978; 93005; 93454; 93571; 96360; 96361 ×2; C1753; C1760; C1769 ×2; C1894; G0378 ×2; G0379; U0003; U0005; 36415; 93010; 99152; 99153; J0153; J1644; J2250; J3010; J7050; Q9967

== ENCOUNTER 2022-12-28 14:42 | Inpatient (IN) | payer MEDICARE, OTHER ==
[2022-12-28 15:33] LABS: #Eosinphils 0.1 thou/uL (0.0-0.7); #Monocytes 0.7 thou/uL (0.11-0.59); #Neutrophils 5.1 thou/uL (1.40-6.50); %Basophils 0.5 % (0.0-1.0); %Eosinophils 1.5 % (0.0-10.0); %Lymphocytes 11.6 % (21.0-51.0); %Monocytes 9.8 % (0.0-10.0); %Neutrophils 76.1 % (42.0-75.0); Hematocrit 32.4 % (42.0-52.0); Hemoglobin 10.5 g/dL (14.0-18.0); Mean Corpuscular HGB CONC 32.4 g/dL (32.0-36.0); Mean Corpuscular Hemoglobin 32.6 pg (27.0-31.0); Mean Corpuscular Volume 100.6 fl (78.0-98.0); Mean Platelet Volume 10.3 fL (7.4-10.4); Platelet Count 134 10x3/uL (130-400); RBC Distribution Width 15.8 % (11.5-14.5); Red Blood Cell (RBC) Count 3.22 mill/uL (4.70-6.10); White Blood Cell (WBC) Count 6.6 10x3/uL (4.8-10.8)
[2022-12-28 15:54] LABS: Troponin I 0.173 ng/mL (< 0.028)
[2022-12-28 15:55] LABS: ALT (SGPT) 12 U/L (8-55); AST (SGOT) 19 U/L (5-34); Alkaline Phosphatase 82 U/L (40-110); Anion Gap 14 mmol/L (10-20); BUN (Urea Nitrogen) 29 mg/dL (8.4-25.7); Calc. Creatinine Clearance 0 mL/min (70-130); Calcium 9.1 mg/dL (7.8-10.44); Carbon Dioxide 26 mmol/L (23-31); Chloride 99 mmol/L (98-107); Estimated GFR 28; Globulin 2.7 g/dL (2.4-3.5); Glucose 128 mg/dL (83-110); Magnesium 2.2 mg/dL (1.6-2.6); Potassium 3.5 mmol/L (3.5-5.1); Protein, Total 6.7 g/dL (5.8-8.1); Sodium 135 mmol/L (136-145)
[2022-12-28] MEDS ORDERED: Furosemide 40 MG/4 ML VIAL ONE (16:32)
[2022-12-28] MEDS ORDERED: Aspirin 325 MG TAB ONE (16:32)
[2022-12-28] MEDS ORDERED: Ipratropium/Albuterol 3 ML NEB ONE (16:34)
[2022-12-28] MEDS ORDERED: Albuterol 2.5 MG/0.5 ML NEB ONE (16:34)
[2022-12-28] MEDS ORDERED: Ondansetron PF 4 MG/2 ML Vial IVP PRN (17:10)
[2022-12-28] MEDS ORDERED: Ondansetron ODT 4 MG TAB PO PRN (17:10)
[2022-12-28 18:48] VITALS: BMI 34.2
[2022-12-28 18:55] LABS: Troponin I 0.184 ng/mL (< 0.028)
[2022-12-28 22:07] LABS: Troponin I 0.217 ng/mL (< 0.028)
[2022-12-28] MEDS: Melatonin 3 MG TAB PO PRN (23:55)
[2022-12-29 01:16] LABS: #Eosinphils 0.1 thou/uL (0.0-0.7); #Monocytes 0.7 thou/uL (0.11-0.59); #Neutrophils 4.8 thou/uL (1.40-6.50); %Basophils 0.6 % (0.0-1.0); %Eosinophils 1.5 % (0.0-10.0); %Lymphocytes 14.5 % (21.0-51.0); %Monocytes 10.9 % (0.0-10.0); Hematocrit 32.7 % (42.0-52.0); Hemoglobin 10.7 g/dL (14.0-18.0); Mean Corpuscular HGB CONC 32.7 g/dL (32.0-36.0); Mean Corpuscular Hemoglobin 32.9 pg (27.0-31.0); Mean Corpuscular Volume 100.6 fl (78.0-98.0); Mean Platelet Volume 10.1 fL (7.4-10.4); Platelet Count 126 10x3/uL (130-400); Red Blood Cell (RBC) Count 3.25 mill/uL (4.70-6.10); White Blood Cell (WBC) Count 6.6 10x3/uL (4.8-10.8)
[2022-12-29 01:36] LABS: Anion Gap 15 mmol/L (10-20); BUN (Urea Nitrogen) 32 mg/dL (8.4-25.7); Calc. Creatinine Clearance 32 mL/min (70-130); Calcium 8.9 mg/dL (7.8-10.44); Carbon Dioxide 25 mmol/L (23-31); Chloride 99 mmol/L (98-107); Estimated GFR 28; Glucose 125 mg/dL (83-110); Magnesium 2.2 mg/dL (1.6-2.6); Potassium 3.6 mmol/L (3.5-5.1); Sodium 135 mmol/L (136-145)
[2022-12-29 01:40] LABS: Troponin I 0.191 ng/mL (< 0.028)
[2022-12-29] MEDS: Furosemide 40 MG/4 ML VIAL SLOW IVP SCH ×2 (05:14→14:11)
[2022-12-29] MEDS: Aspirin Chewable 81 MG TAB PO SCH (08:26)
[2022-12-29] MEDS: Sertraline 100 MG TAB PO SCH (08:26)
[2022-12-29] MEDS: Apixaban 2.5 MG TAB PO SCH ×2 (08:26→20:27)
[2022-12-29] MEDS: Allopurinol 300 MG TAB PO SCH (08:26)
[2022-12-29] MEDS ORDERED: Aspirin Chewable 81 MG TAB PO SCH (09:00)
[2022-12-29] MEDS ORDERED: Sacubitril 24MG/Valsartan 26 MG TAB PO SCH (09:00)
[2022-12-29] MEDS: Atorvastatin Calcium 20 MG TAB PO SCH (20:27)
[2022-12-29] MEDS: Melatonin 3 MG TAB PO PRN (22:24)
[2022-12-30 05:05] LABS: #Monocytes 0.8 thou/uL (0.11-0.59); #Neutrophils 5.6 thou/uL (1.40-6.50); %Basophils 0.4 % (0.0-1.0); %Eosinophils 0.4 % (0.0-10.0); %Lymphocytes 10.2 % (21.0-51.0); %Neutrophils 77.3 % (42.0-75.0); Hematocrit 31.5 % (42.0-52.0); Hemoglobin 10.3 g/dL (14.0-18.0); Mean Corpuscular HGB CONC 32.7 g/dL (32.0-36.0); Mean Corpuscular Hemoglobin 32.6 pg (27.0-31.0); Mean Corpuscular Volume 99.7 fl (78.0-98.0); Mean Platelet Volume 10.2 fL (7.4-10.4); Platelet Count 128 10x3/uL (130-400); RBC Distribution Width 15.8 % (11.5-14.5); Red Blood Cell (RBC) Count 3.16 mill/uL (4.70-6.10); White Blood Cell (WBC) Count 7.3 10x3/uL (4.8-10.8)
[2022-12-30] MEDS: Furosemide 40 MG/4 ML VIAL SLOW IVP SCH ×2 (05:21→13:53)
[2022-12-30 05:39] LABS: Anion Gap 17 mmol/L (10-20); BUN (Urea Nitrogen) 40 mg/dL (8.4-25.7); Calc. Creatinine Clearance 30 mL/min (70-130); Calcium 9.3 mg/dL (7.8-10.44); Carbon Dioxide 22 mmol/L (23-31); Chloride 99 mmol/L (98-107); Estimated GFR 25; Glucose 132 mg/dL (83-110); Potassium 3.9 mmol/L (3.5-5.1); Sodium 134 mmol/L (136-145)
[2022-12-30] MEDS: Allopurinol 300 MG TAB PO SCH (08:58)
[2022-12-30] MEDS: Carvedilol 3.125 MG TAB PO SCH ×2 (08:58→16:14)
[2022-12-30] MEDS: Sertraline 100 MG TAB PO SCH (08:58)
[2022-12-30] MEDS: Apixaban 2.5 MG TAB PO SCH ×2 (08:58→20:29)
[2022-12-30] MEDS: Aspirin Chewable 81 MG TAB PO SCH (08:58)
[2022-12-30] MEDS: Empagliflozin 10 MG TAB PO SCH (09:07)
[2022-12-30] MEDS: Atorvastatin Calcium 20 MG TAB PO SCH (20:29)
[2022-12-30] MEDS: Melatonin 3 MG TAB PO PRN (20:47)
[2022-12-31] MEDS: Furosemide 40 MG/4 ML VIAL SLOW IVP SCH ×2 (05:13→15:16)
[2022-12-31 05:57] LABS: #Monocytes 0.9 thou/uL (0.11-0.59); #Neutrophils 7.5 thou/uL (1.40-6.50); %Basophils 0.3 % (0.0-1.0); %Eosinophils 0.2 % (0.0-10.0); %Monocytes 9.5 % (0.0-10.0); %Neutrophils 77.4 % (42.0-75.0); Hematocrit 32.9 % (42.0-52.0); Mean Corpuscular HGB CONC 33.4 g/dL (32.0-36.0); Mean Corpuscular Hemoglobin 32.8 pg (27.0-31.0); Mean Corpuscular Volume 98.2 fl (78.0-98.0); Mean Platelet Volume 10.1 fL (7.4-10.4); Platelet Count 138 10x3/uL (130-400); RBC Distribution Width 15.9 % (11.5-14.5); Red Blood Cell (RBC) Count 3.35 mill/uL (4.70-6.10); White Blood Cell (WBC) Count 9.6 10x3/uL (4.8-10.8)
[2022-12-31 06:25] LABS: Anion Gap 16 mmol/L (10-20); BUN (Urea Nitrogen) 53 mg/dL (8.4-25.7); Calc. Creatinine Clearance 27 mL/min (70-130); Calcium 9.4 mg/dL (7.8-10.44); Carbon Dioxide 22 mmol/L (23-31); Chloride 98 mmol/L (98-107); Estimated GFR 22; Glucose 121 mg/dL (83-110); Potassium 4.2 mmol/L (3.5-5.1); Sodium 132 mmol/L (136-145)
[2022-12-31] MEDS ORDERED: DOBUTamine 500 mg/250 ml 250 ML IVPB SCH (07:45)
[2022-12-31] MEDS ORDERED: Metolazone 5 MG TAB PO SCH (08:30)
[2022-12-31] MEDS: Sertraline 100 MG TAB PO SCH (08:38)
[2022-12-31] MEDS: Apixaban 2.5 MG TAB PO SCH ×2 (08:39→20:09)
[2022-12-31] MEDS: Allopurinol 300 MG TAB PO SCH (08:39)
[2022-12-31] MEDS: Carvedilol 3.125 MG TAB PO SCH ×2 (08:39→17:11)
[2022-12-31] MEDS: Aspirin Chewable 81 MG TAB PO SCH (08:39)
[2022-12-31] MEDS: Empagliflozin 10 MG TAB PO SCH (08:39)
[2022-12-31 09:01] LABS: Bacteria/HPF None Seen HPF (None Seen); Bilirubin Negative (Negative); Blood, Urine Negative (Negative); Clarity Clear (Clear); Glucose, Urine (Dipstick) 200 mg/dL (Negative); Ketone, Urine Negative (Negative); Leukocyte Negative Leu/uL (Negative); Nitrite Negative (Negative); Protein, Urine (Dipstick) 10 mg/dL (Neg-Trace); RBC/HPF None Seen HPF (0-3); Specific Gravity, Urine 1.012 (1.002-1.036); Squamous Epithelial 0-3 HPF (0-3); Urobilinogen Normal mg/dL (Less than 2); WBC/HPF 0-3 HPF (0-3)
[2022-12-31] MEDS: Albumin 25% 25 GM/100 ML BOT IVPB SCH ×3 (11:45→22:37)
[2022-12-31] MEDS: Nitroglycerin 2% Ointment 1 INCH/1 GM Packet TOP SCH ×2 (15:16→22:37)
[2022-12-31] MEDS: DOBUTamine 500 mg/250 ml 250 ML IVPB SCH (15:24)
[2022-12-31] MEDS: Atorvastatin Calcium 20 MG TAB PO SCH (20:09)
[2022-12-31] MEDS: Melatonin 3 MG TAB PO PRN (22:37)
[2023-01-01 05:50] LABS: #Monocytes 0.7 thou/uL (0.11-0.59); #Neutrophils 9.2 thou/uL (1.40-6.50); %Basophils 0.2 % (0.0-1.0); %Eosinophils 0.1 % (0.0-10.0); %Lymphocytes 4.9 % (21.0-51.0); %Monocytes 6.5 % (0.0-10.0); %Neutrophils 87.7 % (42.0-75.0); Hematocrit 31.3 % (42.0-52.0); Hemoglobin 10.4 g/dL (14.0-18.0); Mean Corpuscular HGB CONC 33.2 g/dL (32.0-36.0); Mean Corpuscular Hemoglobin 33.2 pg (27.0-31.0); Mean Platelet Volume 10.4 fL (7.4-10.4); Platelet Count 126 10x3/uL (130-400); RBC Distribution Width 15.7 % (11.5-14.5); Red Blood Cell (RBC) Count 3.13 mill/uL (4.70-6.10); White Blood Cell (WBC) Count 10.5 10x3/uL (4.8-10.8)
[2023-01-01] MEDS: Furosemide 40 MG/4 ML VIAL SLOW IVP SCH ×2 (06:16→14:53)
[2023-01-01] MEDS: Nitroglycerin 2% Ointment 1 INCH/1 GM Packet TOP SCH ×3 (06:16→20:11)
[2023-01-01] MEDS: Albumin 25% 25 GM/100 ML BOT IVPB SCH ×4 (06:16→23:21)
[2023-01-01 06:18] LABS: Anion Gap 20 mmol/L (10-20); BUN (Urea Nitrogen) 66 mg/dL (8.4-25.7); Calc. Creatinine Clearance 24 mL/min (70-130); Calcium 9.5 mg/dL (7.8-10.44); Carbon Dioxide 19 mmol/L (23-31); Chloride 95 mmol/L (98-107); Estimated GFR 20; Glucose 107 mg/dL (83-110); Sodium 130 mmol/L (136-145)
[2023-01-01] MEDS: Allopurinol 300 MG TAB PO SCH (08:14)
[2023-01-01] MEDS: Apixaban 2.5 MG TAB PO SCH ×2 (08:14→20:11)
[2023-01-01] MEDS: Aspirin Chewable 81 MG TAB PO SCH (08:14)
[2023-01-01] MEDS: Sertraline 100 MG TAB PO SCH (08:15)
[2023-01-01] MEDS: Carvedilol 3.125 MG TAB PO SCH (08:15)
[2023-01-01] MEDS: Empagliflozin 10 MG TAB PO SCH (08:15)
[2023-01-01] MEDS: DOBUTamine 500 mg/250 ml 250 ML IVPB SCH (14:59)
[2023-01-01] MEDS: Atorvastatin Calcium 20 MG TAB PO SCH (20:11)
[2023-01-01] MEDS: Melatonin 3 MG TAB PO PRN (23:29)
[2023-01-01] MEDS: Acetaminophen 325 MG TAB PO PRN (23:30)
[2023-01-02] MEDS: Nitroglycerin 2% Ointment 1 INCH/1 GM Packet TOP SCH ×3 (05:28→20:17)
[2023-01-02] MEDS: Albumin 25% 25 GM/100 ML BOT IVPB SCH (05:28)
[2023-01-02] MEDS: Furosemide 40 MG/4 ML VIAL SLOW IVP SCH (05:28)
[2023-01-02 06:19] LABS: #Monocytes 0.5 thou/uL (0.11-0.59); #Neutrophils 7.8 thou/uL (1.40-6.50); %Basophils 0.1 % (0.0-1.0); %Eosinophils 0.1 % (0.0-10.0); %Lymphocytes 2.7 % (21.0-51.0); %Monocytes 6.2 % (0.0-10.0); Hematocrit 29.3 % (42.0-52.0); Hemoglobin 9.7 g/dL (14.0-18.0); Mean Corpuscular HGB CONC 33.1 g/dL (32.0-36.0); Mean Corpuscular Hemoglobin 32.3 pg (27.0-31.0); Mean Corpuscular Volume 97.7 fl (78.0-98.0); Mean Platelet Volume 11.1 fL (7.4-10.4); Platelet Count 116 10x3/uL (130-400); RBC Distribution Width 15.5 % (11.5-14.5); White Blood Cell (WBC) Count 8.7 10x3/uL (4.8-10.8)
[2023-01-02] MEDS: DOBUTamine 500 mg/250 ml 250 ML IVPB SCH ×2 (06:41→20:20)
[2023-01-02 06:47] LABS: Anion Gap 19 mmol/L (10-20); BUN (Urea Nitrogen) 78 mg/dL (8.4-25.7); Calc. Creatinine Clearance 21 mL/min (70-130); Calcium 9.5 mg/dL (7.8-10.44); Carbon Dioxide 22 mmol/L (23-31); Chloride 93 mmol/L (98-107); Estimated GFR 17; Glucose 124 mg/dL (83-110); Potassium 3.7 mmol/L (3.5-5.1); Sodium 130 mmol/L (136-145)
[2023-01-02] MEDS ORDERED: Polyethylene Glycol 3350 17 GM Packet PO PRN (09:34)
[2023-01-02] MEDS ORDERED: Allopurinol 300 MG TAB PO SCH (10:45)
[2023-01-02] MEDS: Allopurinol 300 MG TAB PO SCH (11:05)
[2023-01-02] MEDS: Aspirin Chewable 81 MG TAB PO SCH (11:18)
[2023-01-02] MEDS: Sertraline 100 MG TAB PO SCH (11:18)
[2023-01-02] MEDS: Empagliflozin 10 MG TAB PO SCH (11:19)
[2023-01-02] MEDS: Apixaban 2.5 MG TAB PO SCH ×2 (11:19→20:17)
[2023-01-02] MEDS ORDERED: Sodium Chloride 0.65% Nasal 44 ML BOT EA NARE PRN (13:24)
[2023-01-02] MEDS ORDERED: Loratadine 10 MG TAB PO PRN (16:43)
[2023-01-02] MEDS: Fluticasone Propionate Nasal Spray 16 gm Bottle NASAL SCH (17:51)
[2023-01-02] MEDS: Atorvastatin Calcium 20 MG TAB PO SCH (20:17)
[2023-01-02] MEDS ORDERED: diphenhydrAMINE 12.5 MG/5 ML UDCUP PO PRN (21:38)
[2023-01-03 05:43] LABS: #Monocytes 0.3 thou/uL (0.11-0.59); #Neutrophils 7.4 thou/uL (1.40-6.50); %Basophils 0.1 % (0.0-1.0); %Eosinophils 0.5 % (0.0-10.0); %Lymphocytes 4.3 % (21.0-51.0); %Monocytes 3.9 % (0.0-10.0); %Neutrophils 90.7 % (42.0-75.0); Hematocrit 28.8 % (42.0-52.0); Hemoglobin 9.5 g/dL (14.0-18.0); Mean Corpuscular Hemoglobin 32.5 pg (27.0-31.0); Mean Corpuscular Volume 98.6 fl (78.0-98.0); Mean Platelet Volume 10.7 fL (7.4-10.4); Platelet Count 118 10x3/uL (130-400); RBC Distribution Width 15.6 % (11.5-14.5); Red Blood Cell (RBC) Count 2.92 mill/uL (4.70-6.10); White Blood Cell (WBC) Count 8.1 10x3/uL (4.8-10.8)
[2023-01-03] MEDS: Nitroglycerin 2% Ointment 1 INCH/1 GM Packet TOP SCH ×3 (06:00→21:38)
[2023-01-03 06:06] LABS: Anion Gap 20 mmol/L (10-20); BUN (Urea Nitrogen) 89 mg/dL (8.4-25.7); Calc. Creatinine Clearance 19 mL/min (70-130); Calcium 9.4 mg/dL (7.8-10.44); Carbon Dioxide 21 mmol/L (23-31); Chloride 92 mmol/L (98-107); Estimated GFR 15; Glucose 108 mg/dL (83-110); Potassium 3.6 mmol/L (3.5-5.1); Sodium 129 mmol/L (136-145)
[2023-01-03] MEDS: Sertraline 100 MG TAB PO SCH (08:25)
[2023-01-03] MEDS: Apixaban 2.5 MG TAB PO SCH ×2 (08:26→20:56)
[2023-01-03] MEDS: Allopurinol 300 MG TAB PO SCH (08:26)
[2023-01-03] MEDS: Empagliflozin 10 MG TAB PO SCH (08:27)
[2023-01-03] MEDS: Aspirin Chewable 81 MG TAB PO SCH (08:27)
[2023-01-03] MEDS: Fluticasone Propionate Nasal Spray 16 gm Bottle NASAL SCH (08:29)
[2023-01-03 12:38] LABS: Bacteria/HPF 2+ HPF (None Seen); Bilirubin Negative (Negative); Blood, Urine 3+ (Negative); Clarity Turbid (Clear); Glucose, Urine (Dipstick) 70 mg/dL (Negative); Ketone, Urine Negative (Negative); Leukocyte 500 Leu/uL (Negative); Nitrite Negative (Negative); Protein, Urine (Dipstick) 100 mg/dL (Neg-Trace); Specific Gravity, Urine 1.014 (1.002-1.036); Squamous Epithelial 0-3 HPF (0-3); Urobilinogen Normal mg/dL (Less than 2); WBC/HPF Greater than 50 HPF (0-3)
[2023-01-03 12:50] LABS: RBC/HPF 21-50 HPF (0-3)
[2023-01-03] MEDS ORDERED: Tamsulosin HCl 0.4 MG CAP PO SCH (15:00)
[2023-01-03] MEDS ORDERED: Phenazopyridine HCl 95 MG TAB PO SCH (15:00)
[2023-01-03] MEDS: DOBUTamine 500 mg/250 ml 250 ML IVPB SCH (15:05)
[2023-01-03] MEDS: Atorvastatin Calcium 20 MG TAB PO SCH (20:56)
[2023-01-03] MEDS: Phenazopyridine HCl 100 MG TAB PO SCH (20:56)
[2023-01-03] MEDS: diphenhydrAMINE 12.5 MG/5 ML UDCUP PO PRN (22:12)
[2023-01-03] MEDS: Acetaminophen 325 MG TAB PO PRN (23:51)
[2023-01-04 05:36] LABS: #Monocytes 0.4 thou/uL (0.11-0.59); #Neutrophils 6.5 thou/uL (1.40-6.50); %Basophils 0.1 % (0.0-1.0); %Eosinophils 0.1 % (0.0-10.0); %Lymphocytes 5.1 % (21.0-51.0); %Monocytes 5.4 % (0.0-10.0); %Neutrophils 88.2 % (42.0-75.0); Hematocrit 29.3 % (42.0-52.0); Hemoglobin 9.8 g/dL (14.0-18.0); Mean Corpuscular HGB CONC 33.4 g/dL (32.0-36.0); Mean Corpuscular Hemoglobin 32.5 pg (27.0-31.0); Mean Platelet Volume 10.2 fL (7.4-10.4); Platelet Count 121 10x3/uL (130-400); RBC Distribution Width 15.8 % (11.5-14.5); Red Blood Cell (RBC) Count 3.02 mill/uL (4.70-6.10); White Blood Cell (WBC) Count 7.4 10x3/uL (4.8-10.8)
[2023-01-04] MEDS: Nitroglycerin 2% Ointment 1 INCH/1 GM Packet TOP SCH ×3 (05:52→20:16)
[2023-01-04 05:59] LABS: Anion Gap 20 mmol/L (10-20); BUN (Urea Nitrogen) 100 mg/dL (8.4-25.7); Calc. Creatinine Clearance 18 mL/min (70-130); Calcium 9.5 mg/dL (7.8-10.44); Carbon Dioxide 20 mmol/L (23-31); Chloride 90 mmol/L (98-107); Estimated GFR 14; Glucose 113 mg/dL (83-110); Potassium 3.8 mmol/L (3.5-5.1); Sodium 126 mmol/L (136-145)
[2023-01-04] MEDS: Allopurinol 300 MG TAB PO SCH (09:14)
[2023-01-04] MEDS: Empagliflozin 10 MG TAB PO SCH (09:15)
[2023-01-04] MEDS: Aspirin Chewable 81 MG TAB PO SCH (09:15)
[2023-01-04] MEDS: Apixaban 2.5 MG TAB PO SCH ×2 (09:15→20:16)
[2023-01-04] MEDS: Tamsulosin HCl 0.4 MG CAP PO SCH (09:16)
[2023-01-04] MEDS: Sertraline 100 MG TAB PO SCH (09:16)
[2023-01-04] MEDS: DOBUTamine 500 mg/250 ml 250 ML IVPB SCH (09:21)
[2023-01-04] MEDS: Fluticasone Propionate Nasal Spray 16 gm Bottle NASAL SCH (10:10)
[2023-01-04] MEDS: Phenazopyridine HCl 100 MG TAB PO SCH ×3 (10:12→20:15)
[2023-01-04] MEDS: Atorvastatin Calcium 20 MG TAB PO SCH (20:16)
[2023-01-05] MEDS: DOBUTamine 500 mg/250 ml 250 ML IVPB SCH (05:20)
[2023-01-05] MEDS: Furosemide 40 MG/4 ML VIAL SLOW IVP SCH (05:21)
[2023-01-05] MEDS: Nitroglycerin 2% Ointment 1 INCH/1 GM Packet TOP SCH ×2 (05:54→19:25)
[2023-01-05 08:20] LABS: #Eosinphils 0.1 thou/uL (0.0-0.7); #Monocytes 0.4 thou/uL (0.11-0.59); #Neutrophils 5.9 thou/uL (1.40-6.50); %Basophils 0.2 % (0.0-1.0); %Eosinophils 0.9 % (0.0-10.0); %Lymphocytes 4.5 % (21.0-51.0); %Monocytes 5.7 % (0.0-10.0); %Neutrophils 87.9 % (42.0-75.0); Hematocrit 27.2 % (42.0-52.0); Hemoglobin 9.2 g/dL (14.0-18.0); Mean Corpuscular HGB CONC 33.8 g/dL (32.0-36.0); Mean Corpuscular Hemoglobin 32.4 pg (27.0-31.0); Mean Corpuscular Volume 95.8 fl (78.0-98.0); Platelet Count 121 10x3/uL (130-400); RBC Distribution Width 15.5 % (11.5-14.5); Red Blood Cell (RBC) Count 2.84 mill/uL (4.70-6.10); White Blood Cell (WBC) Count 6.7 10x3/uL (4.8-10.8)
[2023-01-05 08:41] LABS: Anion Gap 18 mmol/L (10-20); BUN (Urea Nitrogen) 111 mg/dL (8.4-25.7); Calc. Creatinine Clearance 18 mL/min (70-130); Calcium 9.2 mg/dL (7.8-10.44); Carbon Dioxide 21 mmol/L (23-31); Chloride 91 mmol/L (98-107); Estimated GFR 14; Glucose 107 mg/dL (83-110); Potassium 3.6 mmol/L (3.5-5.1); Sodium 126 mmol/L (136-145)
[2023-01-05] MEDS: Sertraline 100 MG TAB PO SCH (10:10)
[2023-01-05] MEDS: Phenazopyridine HCl 100 MG TAB PO SCH ×3 (10:10→20:57)
[2023-01-05] MEDS: Apixaban 2.5 MG TAB PO SCH ×2 (10:10→20:57)
[2023-01-05] MEDS: Allopurinol 300 MG TAB PO SCH (10:11)
[2023-01-05] MEDS: Tamsulosin HCl 0.4 MG CAP PO SCH (10:12)
[2023-01-05] MEDS: Aspirin Chewable 81 MG TAB PO SCH (10:12)
[2023-01-05] MEDS: Fluticasone Propionate Nasal Spray 16 gm Bottle NASAL SCH (10:14)
[2023-01-05] MEDS: Atorvastatin Calcium 20 MG TAB PO SCH (20:57)
[2023-01-05] MEDS: diphenhydrAMINE 12.5 MG/5 ML UDCUP PO PRN (23:07)
[2023-01-06 05:20] LABS: #Eosinphils 0.1 thou/uL (0.0-0.7); #Monocytes 0.4 thou/uL (0.11-0.59); #Neutrophils 6.1 thou/uL (1.40-6.50); %Basophils 0.1 % (0.0-1.0); %Eosinophils 0.7 % (0.0-10.0); %Lymphocytes 4.1 % (21.0-51.0); %Monocytes 5.5 % (0.0-10.0); %Neutrophils 88.9 % (42.0-75.0); Hematocrit 27.1 % (42.0-52.0); Hemoglobin 8.9 g/dL (14.0-18.0); Mean Corpuscular HGB CONC 32.8 g/dL (32.0-36.0); Mean Corpuscular Volume 97.5 fl (78.0-98.0); Mean Platelet Volume 11.3 fL (7.4-10.4); Platelet Count 118 10x3/uL (130-400); RBC Distribution Width 15.4 % (11.5-14.5); Red Blood Cell (RBC) Count 2.78 mill/uL (4.70-6.10); White Blood Cell (WBC) Count 6.9 10x3/uL (4.8-10.8)
[2023-01-06 05:42] LABS: Anion Gap 18 mmol/L (10-20); BUN (Urea Nitrogen) 114 mg/dL (8.4-25.7); Calc. Creatinine Clearance 19 mL/min (70-130); Carbon Dioxide 20 mmol/L (23-31); Chloride 90 mmol/L (98-107); Estimated GFR 15; Glucose 113 mg/dL (83-110); Potassium 3.7 mmol/L (3.5-5.1); Sodium 124 mmol/L (136-145)
[2023-01-06] MEDS: Furosemide 40 MG/4 ML VIAL SLOW IVP SCH ×2 (06:24→13:44)
[2023-01-06] MEDS: Allopurinol 300 MG TAB PO SCH (09:12)
[2023-01-06] MEDS: Phenazopyridine HCl 100 MG TAB PO SCH ×3 (09:13→20:39)
[2023-01-06] MEDS: Fluticasone Propionate Nasal Spray 16 gm Bottle NASAL SCH (09:13)
[2023-01-06] MEDS: Aspirin Chewable 81 MG TAB PO SCH (09:13)
[2023-01-06] MEDS: Sertraline 100 MG TAB PO SCH (09:14)
[2023-01-06] MEDS: Polyethylene Glycol 3350 17 GM Packet PO SCH (09:14)
[2023-01-06] MEDS: Tamsulosin HCl 0.4 MG CAP PO SCH (09:14)
[2023-01-06] MEDS ORDERED: Furosemide 40 MG/4 ML VIAL SLOW IVP SCH (09:15)
[2023-01-06 10:41] LABS: HBSAB Concentration Less than 8.00 mIU/mL; Hep B Surf AB Non-Reactive (NonReactive); Hep B Surf Ag Non-Reactive S/CO (NonReactive); Hep C IgG Ab Non-Reactive S/CO (NonReactive); Hep C Index 0.04 S/CO (0-0.79)
[2023-01-06] MEDS: Apixaban 2.5 MG TAB PO SCH ×2 (10:45→20:39)
[2023-01-06] MEDS ORDERED: Tuberculin PPD 0.1 ML VIAL I-DERMAL SCH (12:00)
[2023-01-06] MEDS: DOBUTamine 500 mg/250 ml 250 ML IVPB SCH (18:03)
[2023-01-06] MEDS: Atorvastatin Calcium 20 MG TAB PO SCH (20:39)
[2023-01-06] MEDS: diphenhydrAMINE 12.5 MG/5 ML UDCUP PO PRN (23:41)
[2023-01-07] MEDS: DOBUTamine 500 mg/250 ml 250 ML IVPB SCH (04:39)
[2023-01-07] MEDS: Furosemide 40 MG/4 ML VIAL SLOW IVP SCH ×2 (04:39→14:27)
[2023-01-07] MEDS: Fluticasone Propionate Nasal Spray 16 gm Bottle NASAL SCH (08:50)
[2023-01-07] MEDS: Phenazopyridine HCl 100 MG TAB PO SCH ×2 (08:51→14:27)
[2023-01-07] MEDS: Polyethylene Glycol 3350 17 GM Packet PO SCH (08:51)
[2023-01-07] MEDS: Tamsulosin HCl 0.4 MG CAP PO SCH (08:51)
[2023-01-07] MEDS: Apixaban 2.5 MG TAB PO SCH (08:51)
[2023-01-07] MEDS: Sertraline 100 MG TAB PO SCH (08:51)
[2023-01-07] MEDS: Aspirin Chewable 81 MG TAB PO SCH (08:51)
[2023-01-07] MEDS: Allopurinol 300 MG TAB PO SCH (08:51)
[2023-01-07 12:22] VITALS: TEMP 97.5
[2023-01-07 15:08] VITALS: BP 113/61
== END 2023-01-07 16:36 | disposition hospice, home (50) | DRG 280 ==
LOC: ERS 14:42 → ERHOLD 17:24 → 2SW 18:22 → OBSVTOIN 12-29 14:58
PROVIDERS: ADMIT Family Medicine; ATTEND Emergency Medicine
PROC: 30233J1 Transfusion of Nonautologous Serum Albumin into Peripheral Vein, Percutaneous Approach (ICD-10-PCS; principal; 2022-12-31)
DX: I13.0 Hypertensive heart and chronic kidney disease with heart failure and stage 1 through stage 4 chronic kidney disease, or unspecified chronic kidney disease (principal); I50.23 Acute on chronic systolic (congestive) heart failure; I21.A1 Myocardial infarction type 2; N17.0 Acute kidney failure with tubular necrosis; I48.20 Chronic atrial fibrillation, unspecified; N18.4 Chronic kidney disease, stage 4 (severe); E87.1 Hypo-osmolality and hyponatremia; I47.29 Other ventricular tachycardia; I25.10 Atherosclerotic heart disease of native coronary artery without angina pectoris; Z51.5 Encounter for palliative care; Z66 Do not resuscitate; Z95.0 Presence of cardiac pacemaker; M10.9 Gout, unspecified; Z98.890 Other specified postprocedural states; Z88.2 Allergy status to sulfonamides; Z79.82 Long term (current) use of aspirin; Z79.899 Other long term (current) drug therapy; E78.00 Pure hypercholesterolemia, unspecified; J44.9 Chronic obstructive pulmonary disease, unspecified; I34.0 Nonrheumatic mitral (valve) insufficiency; D63.1 Anemia in chronic kidney disease; Z95.5 Presence of coronary angioplasty implant and graft
CPT/HCPCS: 36415; 71045; 71046; 76770; 80048; 80053; 81001; 83735; 83880; 84145; 84484; 85025; 86706; 86803; 87324; 87340; 87449; 93005; 93306; 93798; 94640; 94760; 96374; J1250; J1940; J7611; J7620; P9047; Q0163